=== PATIENT | male | born 1940 | race Caucasian/White ===

== ENCOUNTER 2017-04-17 05:23 | Emergency (ER) | payer MEDICARE ==
[~2017-04-17] VITALS: Ht 172.7 cm; Wt 113.4 kg
[~2017-04-17 05:23] MED LIST: ACYC400 PO; ASPI325EC PO; ATOR10 PO; Aspir-Trin325 MG PO; Ativan1 MG PO; BUSP5 PO; Buspirone HCl7.5 MG PO; CYCL10 PO; DIALYVITE PO; DIAZ2 PO; DOXE10 PO; FISH1000 PO; HYDCHL12.5 PO; INS70/30I; INSDET100 SC; INSUASPI SC; LEVSOD50; LEVSOD50 PO; LISHYD2012 PO; LORA1 PO; LORA2 PO; LOSARTAN-HCTZ1 EAC2 PO; LOSHYD100 PO; Levaquin750 MG PO; MECL25 PO; METO25 PO; METO25ER PO; OMEP20ER PO; PIOG15 PO; RXLORA1 PO; SUPPLEMENTS; [UNRECOGNIZED DRUG - OTHER] PO; [UNRECOGNIZED DRUG - OTHER] PO
== END 2017-04-17 07:45 | disposition home or self-care (01) ==
LOC: ER 05:23
DX: S20.212A Contusion of left front wall of thorax, initial encounter (principal); S00.83XA Contusion of other part of head, initial encounter; E11.9 Type 2 diabetes mellitus without complications; F41.9 Anxiety disorder, unspecified; Z90.49 Acquired absence of other specified parts of digestive tract; Z87.891 Personal history of nicotine dependence; W06.XXXA Fall from bed, initial encounter; Z88.8 Allergy status to other drugs, medicaments and biological substances; Z79.4 Long term (current) use of insulin; Z79.899 Other long term (current) drug therapy; Z79.82 Long term (current) use of aspirin
CPT/HCPCS: 71101; 99283